=== PATIENT | male | born 1980 | race African-American/Black ===

== ENCOUNTER 2018-09-05 21:12 | Observation (INO) | payer OTHER ==
[2018-09-05] MEDS ORDERED: SODIUM CHLORIDE 0.9% 1,000 ML IV ONE (21:39)
--- NOTE | 2018-09-05 21:41 | ED ---
General Adult HPI - General Chief complaint: Chest Pain Stated complaint: Chest tightness, Dizziness Time Seen by Provider: 09/05/18 21:18 Source: patient, family, RN notes reviewed, old records reviewed Mode of arrival: ambulatory Limitations: no limitations - History of Present Illness Initial comments: 38 -year-old male with no past medical history presents for evaluation of chest tightness and lightheadedness. Patient states that he has been dealing with some upper anterior chest tightness which is intermittent over the past several months. He was seen at an outside hospital and received an EKG. Tonight while exercising he developed some upper chest tightness and became lightheaded. Denies nausea or vomiting. Denies radiating chest pain. Denies any headache or focal numbness or weakness. No significant past medical history. No history diabetes, nonsmoker. - Related Data Home Medications Medication Instructions Recorded Confirmed No Known Home Medications 09/05/18 09/05/18 Allergies Allergy/AdvReac Type Severity Reaction Status Date / Time No Known Allergies Allergy Verified 09/05/18 21:31 Review of Systems ROS Statement: Those systems with pertinent positive or pertinent negative responses have been documented in the HPI. ROS Other: All systems not noted in ROS Statement are negative. Past Medical History Past Medical History: No Reported History History of Any Multi-Drug Resistant Organisms: None Reported Past Surgical History: Unable to Obtain Past Psychological History: No Psychological Hx Reported Smoking Status: Never smoker Past Alcohol Use History: None Reported Past Drug Use History: None Reported General Exam Limitations: no limitations General appearance: alert, in no apparent distress Head exam: Present: atraumatic, normocephalic Eye exam: Present: normal appearance, PERRL, EOMI ENT exam: Present: normal exam Neck exam: Present: normal inspection. Absent: tenderness, meningismus Respiratory exam: Present: normal lung sounds bilaterally. Absent: respiratory distress, wheezes Cardiovascular Exam: Present: regular rate, normal rhythm GI/Abdominal exam: Present: soft. Absent: distended, tenderness, guarding Extremities exam: Present: normal inspection, normal capillary refill. Absent: pedal edema Back exam: Present: normal inspection, full ROM Neurological exam: Present: alert, oriented X3, CN II-XII intact. Absent: motor sensory deficit Psychiatric exam: Present: normal affect, normal mood Skin exam: Present: warm, dry, intact. Absent: cyanosis, diaphoretic Course Vital Signs 09/05/18 09/05/18 09/05/18 21:13 22:00 22:51 Temperature 98.3 F Pulse Rate 83 74 77 Respiratory 20 16 15 Rate Blood Pressure 150/89 140/89 141/87 O2 Sat by Pulse 100 100 100 Oximetry EKG Findings - EKG Comments: EKG Findings:: EKG: Normal sinus rhythm, ventricular rate 71, HI interval 158, QRS duration 88, QTC 408, there is Q-wave and T-wave inversion in lead 3, S- wave in lead 1. No ST segment changes. Medical Decision Making - Medical Decision Making 38 -year-old male presenting with intermittent chest tightness. Patient was sent in by recommendations of his primary care physician. Dr. Auguste is able to evaluate the patient in the emergency department. EKG is normal sinus with Q-wave and T-wave inversion in lead 3, may be normal variant. CBC, CMP are within normal limits, d-dimer is negative, initial troponin negative. Patient will be admitted to Dr. Auguste. Recommends echo and stress echo at this time. Cardiology will be placed on consult. - Lab Data Result diagrams: 09/05/18 21:45 09/05/18 21:45 Lab Results 09/05/18 09/05/18 09/05/18 Range/Units 21:45 21:45 21:45 WBC 8.8 (3.8-10.6) k/uL RBC 4.62 (4.30-5.90) m/uL Hgb 13.6 (13.0-17.5) gm/dL Hct 42.0 (39.0-53.0) % MCV 91.0 (80.0-100.0) fL MCH 29.5 (25.0-35.0) pg MCHC 32.4 (31.0-37.0) g/dL RDW 13.2 (11.5-15.5) % Plt Count 332 (150-450) k/uL Neutrophils % 50 % Lymphocytes % 36 % Monocytes % 6 % Eosinophils % 5 % Basophils % 0 % Neutrophils # 4.4 (1.3-7.7) k/uL Lymphocytes # 3.2 (1.0-4.8) k/uL Monocytes # 0.6 (0-1.0) k/uL Eosinophils # 0.4 (0-0.7) k/uL Basophils # 0.0 (0-0.2) k/uL PT (9.0-12.0) sec INR (<1.2) APTT (22.0-30.0) sec D-Dimer (<0.60) mg/L FEU Sodium 139 (137-145) mmol/L Potassium 3.9 (3.5-5.1) mmol/L Chloride 102 (98-107) mmol/L Carbon Dioxide 27 (22-30) mmol/L Anion Gap 10 mmol/L BUN 18 (9-20) mg/dL Creatinine 1.11 (0.66-1.25) mg/dL Est GFR (CKD-EPI)AfAm >90 (>60 ml/min/1.73 sqM) Est GFR (CKD-EPI)NonAf 85 (>60 ml/min/1.73 sqM) Glucose 103 H (74-99) mg/dL Calcium 9.6 (8.4-10.2) mg/dL Magnesium 2.0 (1.6-2.3) mg/dL Total Bilirubin 0.2 (0.2-1.3) mg/dL AST 33 (17-59) U/L ALT 35 (21-72) U/L Alkaline Phosphatase 42 (38-126) U/L Total Creatine Kinase 813 H (55-170) U/L CK-MB (CK-2) 4.5 H (0.0-2.4) ng/mL CK-MB (CK-2) Rel Index 0.6 Troponin I <0.012 (0.000-0.034) ng/mL NT-Pro-B Natriuret Pep pg/mL Total Protein 7.7 (6.3-8.2) g/dL Albumin 4.5 (3.5-5.0) g/dL 09/05/18 09/05/18 Range/Units 21:45 21:45 WBC (3.8-10.6) k/uL RBC (4.30-5.90) m/uL Hgb (13.0-17.5) gm/dL Hct (39.0-53.0) % MCV (80.0-100.0) fL MCH (25.0-35.0) pg MCHC (31.0-37.0) g/dL RDW (11.5-15.5) % Plt Count (150-450) k/uL Neutrophils % % Lymphocytes % % Monocytes % % Eosinophils % % Basophils % % Neutrophils # (1.3-7.7) k/uL Lymphocytes # (1.0-4.8) k/uL Monocytes # (0-1.0) k/uL Eosinophils # (0-0.7) k/uL Basophils # (0-0.2) k/uL PT 9.7 (9.0-12.0) sec INR 0.9 (<1.2) APTT 28.6 (22.0-30.0) sec D-Dimer 0.27 (<0.60) mg/L FEU Sodium (137-145) mmol/L Potassium (3.5-5.1) mmol/L Chloride (98-107) mmol/L Carbon Dioxide (22-30) mmol/L Anion Gap mmol/L BUN (9-20) mg/dL Creatinine (0.66-1.25) mg/dL Est GFR (CKD-EPI)AfAm (>60 ml/min/1.73 sqM) Est GFR (CKD-EPI)NonAf (>60 ml/min/1.73 sqM) Glucose (74-99) mg/dL Calcium (8.4-10.2) mg/dL Magnesium (1.6-2.3) mg/dL Total Bilirubin (0.2-1.3) mg/dL AST (17-59) U/L ALT (21-72) U/L Alkaline Phosphatase (38-126) U/L Total Creatine Kinase (55-170) U/L CK-MB (CK-2) (0.0-2.4) ng/mL CK-MB (CK-2) Rel Index Troponin I (0.000-0.034) ng/mL NT-Pro-B Natriuret Pep 13 pg/mL Total Protein (6.3-8.2) g/dL Albumin (3.5-5.0) g/dL Disposition Clinical Impression: Chest pain Disposition: ADMITTED IP TO THIS HOSP Condition: Stable Is patient prescribed a controlled substance at d/c from ED?: No Referrals: Jong Auguste MD [Primary Care Provider] - 1-2 days Decision to Admit Reason: Admit from EC Decision Date: 09/05/18 Decision Time: 23:19
[2018-09-05 22:03] LABS: Basophils % (A) 0 %; Eosinophils # (A) 0.4 k/uL (0-0.7); Eosinophils % (A) 5 %; HGB 13.6 gm/dL (13.0-17.5); Lymphocytes # (A) 3.2 k/uL (1.0-4.8); Lymphocytes % (A) 36 %; MCH 29.5 pg (25.0-35.0); MCHC 32.4 g/dL (31.0-37.0); Mean Platelet Volume 6.7; Monocytes # (A) 0.6 k/uL (0-1.0); Monocytes % (A) 6 %; Neutrophils # (A) 4.4 k/uL (1.3-7.7); Neutrophils % (A) 50 %; Platelet Count 332 k/uL (150-450); RBC 4.62 m/uL (4.30-5.90); RDW 13.2 % (11.5-15.5); WBC 8.8 k/uL (3.8-10.6)
[2018-09-05 22:12] LABS: ALT 35 U/L (21-72); AST 33 U/L (17-59); Albumin 4.5 g/dL (3.5-5.0); Alkaline Phosphatase 42 U/L (38-126); Anion Gap 10 mmol/L; Blood Urea Nitrogen 18 mg/dL (9-20); Calcium 9.6 mg/dL (8.4-10.2); Carbon Dioxide 27 mmol/L (22-30); Chloride 102 mmol/L (98-107); Glucose 103 mg/dL (74-99); Potassium 3.9 mmol/L (3.5-5.1); Sodium 139 mmol/L (137-145); Total Bilirubin 0.2 mg/dL (0.2-1.3); Total Protein 7.7 g/dL (6.3-8.2)
[2018-09-05 22:15] LABS: D-Dimer 0.27 mg/L FEU (<0.60); INR 0.9 (<1.2); Partial Thromboplastin Time 28.6 sec (22.0-30.0); Prothrombin Time 9.7 sec (9.0-12.0)
[2018-09-05 22:16] LABS: Creatine Kinase 813 U/L (55-170)
[2018-09-05 22:26] LABS: Creatine Kinase MB 4.5 ng/mL (0.0-2.4)
[2018-09-05 22:30] LABS: Troponin I <0.012 ng/mL (0.000-0.034)
--- NOTE | 2018-09-05 22:32 | XR ---
EXAMINATION TYPE: XR chest 2V DATE OF EXAM: 09/05/2018 COMPARISON: NONE HISTORY: Chest pain TECHNIQUE: Frontal and lateral views of the chest are obtained. FINDINGS: Heart and mediastinum are normal. Lungs are clear. Diaphragm is normal. Bony thorax appear s normal. IMPRESSION: Normal chest.
[2018-09-05] MEDS ORDERED: NITROGLYCERIN SL TABS 0.4 MG TAB SUBLINGUAL STA (23:00)
[2018-09-05] MEDS ORDERED: ACETAMINOPHEN TAB 325 MG TAB PO PRN (23:16)
[2018-09-05] MEDS ORDERED: NALOXONE 0.4 MG/ML 1 ML VIAL IV PRN (23:16)
[2018-09-05] MEDS ORDERED: ASPIRIN 325 MG TAB PO STA (23:17)
[2018-09-06 04:24] LABS: Creatine Kinase 737 U/L (55-170)
[2018-09-06 04:36] LABS: Creatine Kinase MB 3.7 ng/mL (0.0-2.4); Troponin I <0.012 ng/mL (0.000-0.034)
[2018-09-06 07:38] VITALS: RESP 18
--- NOTE | 2018-09-06 10:34 | P.CRDCN ---
History of Present Illness History of present illness: This is a pleasant 38-year-old male with no significant past medical history. He denies history of coronary artery disease, hypertension, dyslipidemia and is a nonsmoker. He denies family history of premature coronary artery disease. He has never seen a medical aides teacher for any reason. We' ve been asked to see him in consultation for symptoms of chest discomfort. He states yesterday while he was exercising at the gym on the treadmill he got off the treadmill and he started feeling a tightness in his chest in the midsternal region. This was associated with a dizzy sensation. He denies radiation of the pain to the arm, back, neck or jaw. He denies shortness of breath, diaphoresis, nausea, vomiting or palpitations. The symptoms persisted for approximately 10-15 minutes and ultimately subsided on their own. He states he has felt symptoms like this intermittently in the past and has been diagnosed with costochondritis. He has never undergone any sort of stress testing in the past. At the time of my exam he is seen resting comfortably in bed in no acute distress. He denies any further symptoms of chest discomfort. EKG reveals sinus mechanism with no acute ST or T wave abnormalities noted. Chest x-ray is negative for an acute cardiopulmonary process. Laboratory data reviewed, WBC 8.8, hemoglobin 13.6, platelets 332, d-dimer 0.27 , sodium 139, potassium 3.9, creatinine 1.11, magnesium 2.0, cardiac enzymes negative 2, CK 813 and 737, NT proBNP 13. He takes no daily cardiac medications. At the time of my exam: CONSTITUTIONAL: Denies fever. Denies chills. EYES: Denies blurred vision. Denies vision changes. Denies eye pain. EARS, NOSE, MOUTH & THROAT: Denies headache. Denies sore throat. Denies ear pain. CARDIOVASCULAR: Denies chest pain. Denies shortness of breath. Denies orthopnea. Denies PND. Denies palpitations. RESPIRATORY: Denies cough. GASTROINTESTINAL: Denies abdominal pain. Denies diarrhea. Denies constipation. Denies nausea. Denies vomiting. MUSCULOSKELETAL: Denies myalgias. INTEGUMENTARY: Denies pruitis. Denies rash. NEUROLOGIC: Denies numbness. Denies tingling. Denies weakness. PSYCHIATRIC: Denies anxiety. Denies depression. ENDOCRINE: Denies fatigue. Denies weight change. Denies polydipsia. Denies polyurina. GENITOURINARY: Denies burning, hematuria or urgency with micturation. HEMATOLOGIC: Denies history of anemia. Denies bleeding. Blood pressure 149/80 heart rate 62 afebrile maintaining oxygen saturation on room air GENERAL: This is a 38-year-old -[place] male in no apparent distress at the time of my examination. HEENT: Head is atraumatic, normocephalic. Pupils are equal, round. Sclerae anicteric. Conjunctivae are clear. Mucous membranes of the mouth are moist. Neck is supple. There is no jugular venous distention. No carotid bruit is heard. LUNGS: Clear to auscultation no wheezes, rales or rhonchi. No chest wall tenderness is noted on palpation or with deep breathing. HEART: Regular rate and rhythm without murmurs, rubs or gallops. S1 and S2 heard. ABDOMEN: Soft, nontender. Bowel sounds are heard. No organomegaly noted. EXTREMITIES: No evidence of peripheral edema and no calf tenderness noted. VASCULAR: Radial and dorsalis pedis pulses palpated, no evidence of clubbing. NEUROLOGIC: Patient is awake, alert and oriented x3. ASSESSMENT Chest pain, atypical. An acute coronary event has been ruled out with no EKG evidence of ischemia and negative cardiac enzymes. PLAN An acute coronary event has been ruled out with no EKG evidence of ischemia and negative cardiac enzymes. Stress test and echocardiogram have been ordered by the emergency department and we agree with proceeding. If stress test is negative he is stable from a cardiac perspective. Thank you kindly for this consultation. Nurse Practitioner note has been reviewed, I agree with a documented findings and plan of care. Patient was seen and examined. Past Medical History Past Medical History: No Reported History History of Any Multi-Drug Resistant Organisms: None Reported Past Surgical History: No Surgical Hx Reported Additional Past Anesthesia/Blood Transfusion Reaction / Comment(s): Pt has never had anesthesia Smoking Status: Never smoker - Past Family History Father Family Medical History: No Reported History Additional Family Medical History / Comment(s): Healthy Mother Family Medical History: No Reported History Additional Family Medical History / Comment(s): Healthy Medications and Allergies Home Medications Medication Instructions Recorded Confirmed Type No Known Home Medications 09/05/18 09/05/18 History Allergies Allergy/AdvReac Type Severity Reaction Status Date / Time No Known Allergies Allergy Verified 09/05/18 21:31 Physical Exam Vitals: Vital Signs Temp Pulse Pulse Resp BP BP Pulse Ox 09/06/18 07:30 97.5 F L 62 18 149/80 100 09/06/18 05:00 60 17 120/79 97 09/06/18 04:00 49 L 13 116/71 98 09/06/18 03:00 53 L 13 120/63 97 09/06/18 02:00 66 18 119/68 96 09/06/18 01:00 66 16 125/65 97 09/06/18 00:00 75 12 124/72 97 09/05/18 23:56 74 18 124/72 97 09/05/18 22:51 77 15 141/87 100 09/05/18 22:00 74 16 140/89 100 09/05/18 21:13 98.3 F 83 20 150/89 100 Intake and Output 09/05/18 09/06/18 09/06/18 22:59 06:59 14:59 Other: Voiding Method Toilet Weight 108.862 kg 110.7 kg Results 09/05/18 21:45 09/05/18 21:45 Cardiac Enzymes 09/05/18 09/05/18 09/06/18 Range/Units 21:45 21:45 03:21 AST 33 (17-59) U/L CK-MB (CK-2) 4.5 H 3.7 H (0.0-2.4) ng/mL Troponin I <0.012 <0.012 (0.000-0.034) ng/mL Coagulation 09/05/18 Range/Units 21:45 PT 9.7 (9.0-12.0) sec APTT 28.6 (22.0-30.0) sec CBC 09/05/18 Range/Units 21:45 WBC 8.8 (3.8-10.6) k/uL RBC 4.62 (4.30-5.90) m/uL Hgb 13.6 (13.0-17.5) gm/dL Hct 42.0 (39.0-53.0) % Plt Count 332 (150-450) k/uL Comprehensive Metabolic Panel 09/05/18 Range/Units 21:45 Sodium 139 (137-145) mmol/L Potassium 3.9 (3.5-5.1) mmol/L Chloride 102 (98-107) mmol/L Carbon Dioxide 27 (22-30) mmol/L BUN 18 (9-20) mg/dL Creatinine 1.11 (0.66-1.25) mg/dL Glucose 103 H (74-99) mg/dL Calcium 9.6 (8.4-10.2) mg/dL AST 33 (17-59) U/L ALT 35 (21-72) U/L Alkaline Phosphatase 42 (38-126) U/L Total Protein 7.7 (6.3-8.2) g/dL Albumin 4.5 (3.5-5.0) g/dL Current Medications Generic Name Dose Route Start Last Admin Trade Name Freq PRN Reason Stop Dose Admin Acetaminophen 650 mg 09/05/18 23:16 Tylenol Tab PO Q6HR PRN Mild Pain or Fever > 100.5 Naloxone HCl 0.2 mg 09/05/18 23:16 Narcan IV Q2M PRN Opioid Reversal Intake and Output 09/05/18 09/06/18 09/06/18 22:59 06:59 14:59 Other: Voiding Method Toilet Weight 108.862 kg 110.7 kg Patient Weight 09/07/18 06:59 Weight 110.7 kg 09/05/18 21:45 09/05/18 21:45
[2018-09-06 11:25] VITALS: BP 113/71; PULSE 69; TEMP 98.5
--- NOTE | 2018-09-06 12:03 | ECHOF ---
Referral Reason:cp MEASUREMENTS -------- HEIGHT: 182.9 cm WEIGHT: 108.9 kg BP: 120/79 RVIDd: 3.2 cm (< 3.3) IVSd: 1.2 cm (0.6 - 1.1) LVIDd: 4.5 cm (3.9 - 5.3) LVPWd: 1.2 cm (0.6 - 1.1) IVSs: 1.7 cm LVIDs: 3.1 cm LVPWs: 1.8 cm LA Diam: 3.4 cm (2.7 - 3.8) LAESV Index (A-L): 24.31 ml/m Ao Diam: 2.9 cm (2.0 - 3.7) AV Cusp: 2.0 cm (1.5 - 2.6) MV EXCURSION: 21.150 mm (> 18.000) MV EF SLOPE: 135 mm/s (70 - 150) EPSS: 0.3 cm MV E Hima: 1.08 m/s MV DecT: 217 ms MV A Hima: 0.83 m/s MV E/A Ratio: 1.31 RAP: 5.00 mmHg RVSP: 22.27 mmHg FINDINGS -------- Sinus rhythm. This was a technically good study. The left ventricular size is normal. There is borderline concentric left ventricular hypertrophy. Overall left ventricular systolic function is normal with, an EF between 55 - 60 %. The right ventricle is normal in size. Normal LA size by volume 22+/-6 ml/m2. The right atrium is normal in size. The aortic valve is trileaflet, and appears structurally normal. No aortic stenosis or regurgitation. The mitral valve is normal. Mild tricuspid regurgitation present. Right ventricular systolic pressure is normal at < 35 mmHg. The right ventricular systolic pressure, as measured by Doppler, is 22.27mmHg. Trace/mild (physiologic) pulmonic regurgitation. The aortic root size is normal. Normal inferior vena cava with normal inspiratory collapse consistent with estimated right atrial pre ssure of 5 mmHg. There is no pericardial effusion. CONCLUSIONS -------- 1. Sinus rhythm. 2. This was a technically good study. 3. The left ventricular size is normal. 4. There is borderline concentric left ventricular hypertrophy. 5. Overall left ventricular systolic function is normal with, an EF between 55 - 60 %. 6. Normal LA size by volume 22+/-6 ml/m2. 7. The aortic valve is trileaflet, and appears structurally normal. No aortic stenosis or regurgitati on. 8. The mitral valve is normal. 9. Mild tricuspid regurgitation present. 10. Right ventricular systolic pressure is normal at < 35 mmHg. 11. Trace/mild (physiologic) pulmonic regurgitation. 12. The aortic root size is normal. 13. Normal inferior vena cava with normal inspiratory collapse consistent with estimated right atrial pressure of 5 mmHg. 14. There is no pericardial effusion. INTEGRITY MANAGER: Mar Cancino RDCS
--- NOTE | 2018-09-06 13:37 | ECHOS ---
STRESS ECHOCARDIOGRAM DATE OF SERVICE: 09/06/2018 INDICATIONS: Chest pain. MEDICATIONS: BASELINE HEART RATE: 68 BASELINE BLOOD PRESSURE: 131/70 MAXIMUM HEART RATE: 164 MAXIMUM BLOOD PRESSURE: 182/100 85% MPHR: 156 100% MPHR: 184 METS: 12.1 MAXIMUM STAGE REACHED: IV TOTAL EXERCISE TIME: 11 minutes CLINICAL INFORMATION: Baseline rhythm is sinus mechanism, rate 68, normal axis and intervals, RSR prime. Baseline blood pressure 131/70 mmHg. Patient exercised on Kal protocol for 11 minutes, reaching peak rate 164 beats per minute, which is equal to 89% maximum predicted heart rate. Peak blood pressure 182/100 mmHg. Test was terminated secondary to fatigue. There was no chest pain. Electrocardiograph monitoring revealed no evidence of diagnostic ischemic ST deviation. Baseline echocardiogram revealed normal wall thickening and motion. At peak exercise, there was normal wall motion augmentation with no hypokinesis or dyskinesis. CONCLUSION: 1. Good exercise tolerance with normal electrocardiograph response to exercise. 2. Normal stress echocardiogram with no evidence of stress induced ischemia. MMODL / IJN: [id number] /
--- NOTE | 2018-09-06 16:12 | P.HPIM ---
History of Present Illness 38-year-old male developed chest pain after working out in the gym. 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 Patient to have a cardiology evaluation Review of Systems Cardiovascular: Reports chest pain Past Medical History Past Medical History: No Reported History History of Any Multi-Drug Resistant Organisms: None Reported Past Surgical History: No Surgical Hx Reported Additional Past Anesthesia/Blood Transfusion Reaction / Comment(s): Pt has never had anesthesia Smoking Status: Never smoker - Past Family History Father Family Medical History: No Reported History Additional Family Medical History / Comment(s): Healthy Mother Family Medical History: No Reported History Additional Family Medical History / Comment(s): Healthy Medications and Allergies Home Medications Medication Instructions Recorded Confirmed Type No Known Home Medications 09/05/18 09/05/18 History Allergies Allergy/AdvReac Type Severity Reaction Status Date / Time No Known Allergies Allergy Verified 09/05/18 21:31 Physical Exam Vitals: Vital Signs Temp Pulse Pulse Resp BP BP Pulse Ox 09/06/18 11:24 98.5 F 69 18 113/71 99 09/06/18 07:30 97.5 F L 62 18 149/80 100 09/06/18 05:00 60 17 120/79 97 09/06/18 04:00 49 L 13 116/71 98 09/06/18 03:00 53 L 13 120/63 97 09/06/18 02:00 66 18 119/68 96 09/06/18 01:00 66 16 125/65 97 09/06/18 00:00 75 12 124/72 97 09/05/18 23:56 74 18 124/72 97 09/05/18 22:51 77 15 141/87 100 09/05/18 22:00 74 16 140/89 100 09/05/18 21:13 98.3 F 83 20 150/89 100 Intake and Output 09/06/18 09/06/18 09/06/18 06:59 14:59 22:59 Intake Total 600 Balance 600 Intake: Oral 600 Other: Voiding Method Toilet # Voids 1 Weight 110.7 kg - Constitutional General appearance: average body habitus - EENT Eyes: PERRLA Ears: bilateral: normal - Neck Neck: normal ROM - Respiratory Respiratory: negative: CTA - Cardiovascular Rhythm: regular - Gastrointestinal General gastrointestinal: soft - Neurologic Neurologic: CNII-XII intact - Musculoskeletal Musculoskeletal: gait normal - Psychiatric Psychiatric: A&O x's 3, appropriate affect, intact judgment & insight Results CBC & Chem 7: 09/05/18 21:45 09/05/18 21:45 Labs: Abnormal Lab Results - Last 24 Hours (Table) 09/05/18 09/05/18 09/06/18 Range/Units 21:45 21:45 03:21 Glucose 103 H (74-99) mg/dL Total Creatine Kinase 813 H 737 H (55-170) U/L CK-MB (CK-2) 4.5 H 3.7 H (0.0-2.4) ng/mL Chest x-ray: report reviewed Thrombosis Risk Factor Assmnt - Choose All That Apply Any of the Below Risk Factors Present?: Yes Each Factor Represents 1 point: Obesity (BMI >25) Other Risk Factors: No Other congenital or acquired thrombophilia - If yes, enter type in comment: No Thrombosis Risk Factor Assessment Total Risk Factor Score: 1 Thrombosis Risk Factor Assessment Level: Low Risk Assessment and Plan Plan: Assessment Atypical chest pain troponins negative EKG normal sinus rhythm Negative stress test discharge per cardiology Negative health history Plan Cardiology consultation Discharge home follow-up with family physician Dr.Aaron Auguste
--- NOTE | 2018-09-06 16:14 | P.DS ---
Providers Date of admission: 09/05/18 23:41 Expected date of discharge: 09/06/18 Attending physician: Jong Auguste Consults: 09/05/18 23:17 Consult Physician Routine Consulting Provider: Art Galindo Consult Reason/Comments: CP Do you want consulting provider notified?: Yes Primary care physician: Jong Auguste Hospital Course: 38-year-old well-developed male was admitted to the emergency room for evaluation of chest pain. Patient had a consultation with cardiology cardiology cleared for discharge with the negative stress test Assessment Chest pain atypical troponins negative stress test negative Negative health history Plan Follow-up with family physician Dr. Jong Auguste Patient Condition at Discharge: Stable Plan - Discharge Summary Discharge Rx Participant: No New Discharge Prescriptions: No Action No Known Home Medications Discharge Medication List No Known Home Medications 09/05/18 [History] Follow up Appointment(s)/Referral(s): Jong Auguste MD [Primary Care Provider] - 1-2 days Discharge Disposition: HOME SELF-CARE
== END 2018-09-06 17:06 | disposition home or self-care (01) ==
LOC: EC 21:12 → 1SOBS 23:41
PROVIDERS: ADMIT Family Medicine; ATTEND Family Medicine
DX: R07.89 Other chest pain (principal); R42 Dizziness and giddiness; E66.9 Obesity, unspecified; Z68.33 Body mass index [BMI] 33.0-33.9, adult
CPT/HCPCS: 96360; 99285; 36415; 93005; 93306; 93351; 85379; 83880; 80053; 82550 ×2; 82553 ×2; 83735; 84484 ×2; 85025; 85610; 85730; 71046; G0378 ×2

== ENCOUNTER 2021-04-20 20:06 | Emergency (ER) | payer OTHER ==
[2021-04-20] MEDS ORDERED: MAG HYDROX/AL HYDROX/SIMETH 30 ML, HYOSCYAMINE ELIXIR 10 ML, LIDOCAINE VISCOUS 2% 10 ML PO STA ×6 (20:35)
--- NOTE | 2021-04-20 20:39 | ED ---
General Adult HPI - General Chief complaint: Chest Pain Stated complaint: Chest Pain Time Seen by Provider: 04/20/21 20:22 Source: patient Mode of arrival: ambulatory Limitations: no limitations - History of Present Illness Initial comments: Dictation was produced using [employer] dictation software. please excuse any grammatical, word or spelling errors. Chief Complaint: 40-year-old male presents with chest pain History of Present Illness: She is 40-year-old male who presents today with chest pain. His pain is exacerbated whenever he tries to swallow solids or liquids. He does not feel like he is having issues with dysphagia but he does feel symptoms when he swallows. He states that it's sharp in his mid chest. His symptoms not exacerbated by exertion. No associated diaphoresis. Does not radiate to shoulders or jaw. Patient has no history of coronary artery disease. Does not smoke. No medical problems. No family history of cardiac disease. The ROS documented in this emergency department record has been reviewed and confirmed by me. Those systems with pertinent positive or negative responses have been documented in the HPI. All other systems are other negative and/or noncontributory. PHYSICAL EXAM: General Impression: Alert and oriented x3, not in acute distress, not drooling HEENT: Normocephalic atraumatic, extra-ocular movements intact, pupils equal and reactive to light bilaterally, mucous membranes moist. Cardiovascular: Heart regular rate and rhythm Chest: Able to complete full sentences, no retractions, no tachypnea Abdomen: abdomen soft, non-tender, non-distended, no organomegaly Musculoskeletal: Pulses present and equal in all extremities, no peripheral edema Motor: no focal deficits noted Neurological: CN II-XII grossly intact, no focal motor or sensory deficits noted Skin: Intact with no visualized rashes Psych: Normal affect and mood ED course: 40-year-old male presents with odynophagia. Symptoms are very atypical. Since for ACS. Signs upon arrival are within acceptable limits. EKG interpretation: Ventricular rate 72, normal sinus rhythm, MA interval 152, QRS 82, QTC 424. No MA prolongation, no QTC prolongation, no ST or T-wave changes noted. Overall, this EKG is unremarkable Two-view chest x-ray is unremarkable. Patient reports relief after GI cocktail administration. He does report some relief. Patient advised to follow-up with primary care doctor for outpatient management of odynophagia. - Related Data Previous Rx's Medication Instructions Recorded Acetaminophen Tab [Tylenol] 650 mg PO Q6HR PRN tab 09/06/18 Allergies Allergy/AdvReac Type Severity Reaction Status Date / Time No Known Allergies Allergy Verified 04/20/21 20:14 Review of Systems ROS Statement: Those systems with pertinent positive or pertinent negative responses have been documented in the HPI. ROS Other: All systems not noted in ROS Statement are negative. Past Medical History Past Medical History: No Reported History History of Any Multi-Drug Resistant Organisms: None Reported Past Surgical History: No Surgical Hx Reported Additional Past Anesthesia/Blood Transfusion Reaction / Comment(s): Pt has never had anesthesia Past Psychological History: No Psychological Hx Reported Past Alcohol Use History: None Reported Past Drug Use History: None Reported - Past Family History Father Family Medical History: No Reported History Additional Family Medical History / Comment(s): Healthy Mother Family Medical History: No Reported History Additional Family Medical History / Comment(s): Healthy General Exam Limitations: no limitations Course Vital Signs 04/20/21 20:14 Temperature 97.9 F Pulse Rate 71 Respiratory 16 Rate Blood Pressure 129/84 O2 Sat by Pulse 97 Oximetry Disposition Clinical Impression: Chest pain Disposition: HOME SELF-CARE Condition: Good Instructions (If sedation given, give patient instructions): Chest Pain (ED) Is patient prescribed a controlled substance at d/c from ED?: No Referrals: Jong Auguste MD [Primary Care Provider] - 1-2 days
--- NOTE | 2021-04-20 20:57 | XR ---
EXAMINATION TYPE: XR chest 2V DATE OF EXAM: 04/20/2021 COMPARISON: 09/05/2018 HISTORY: Chest pain TECHNIQUE: FINDINGS: Heart and mediastinum are normal. Lungs are clear. Diaphragm is normal. Bony thorax appears normal. IMPRESSION: Normal chest. No change.
[2021-04-20 22:01] VITALS: BP 118/74; PULSE 18; RESP 64; TEMP 98.2
== END 2021-04-20 21:50 | disposition home or self-care (01) ==
LOC: EC 20:06
DX: R07.9 Chest pain, unspecified (principal)
CPT/HCPCS: 71046; 93005; 99285

== ENCOUNTER 2022-04-02 17:52 | Emergency (ER) | payer BC ==
[2022-04-02 18:17] VITALS: BP 110/70; PULSE 100; RESP 20; TEMP 98
[2022-04-02] MEDS ORDERED: SODIUM CHLORIDE 0.9% 500 ML 500 ML IV STA (18:34)
--- NOTE | 2022-04-02 18:58 | XR ---
EXAMINATION TYPE: XR chest 2V DATE OF EXAM: 04/02/2022 COMPARISON: 04/20/2021 HISTORY: Dysrhythmia TECHNIQUE: Frontal and lateral views of the chest are obtained. FINDINGS: There is no focal air space opacity, pleural effusion, or pneumothorax seen. The cardiac silhouette size is within normal limits. The osseous structures are intact. IMPRESSION: No acute cardiopulmonary process.
[2022-04-02 19:02] LABS: Basophils % (A) 0 %; Eosinophils # (A) 0.1 k/uL (0-0.7); Eosinophils % (A) 1 %; HCT 44.4 % (39.0-53.0); HGB 14.5 gm/dL (13.0-17.5); Lymphocytes # (A) 0.9 k/uL (1.0-4.8); Lymphocytes % (A) 9 %; MCH 30.8 pg (25.0-35.0); MCHC 32.6 g/dL (31.0-37.0); MCV 94.5 fL (80.0-100.0); Mean Platelet Volume 7.6; Monocytes # (A) 0.2 k/uL (0-1.0); Monocytes % (A) 2 %; Neutrophils # (A) 8.5 k/uL (1.3-7.7); Neutrophils % (A) 87 %; Platelet Count 358 k/uL (150-450); RBC 4.69 m/uL (4.30-5.90); RDW 13.1 % (11.5-15.5); WBC 9.7 k/uL (3.8-10.6)
[2022-04-02 19:05] LABS: INR 0.9 (<1.2); Partial Thromboplastin Time 27.6 sec (22.0-30.0); Prothrombin Time 10.1 sec (9.0-12.0)
--- NOTE | 2022-04-02 19:05 | ED ---
General Adult HPI - General Chief complaint: Arrhythmia/Palpitations Stated complaint: High HR Time Seen by Provider: 04/02/22 18:15 Source: patient, RN notes reviewed, old records reviewed Mode of arrival: ambulatory Limitations: no limitations - History of Present Illness Initial comments: This is a 41-year-old male who presents emergency Department complaining of heart palpitations. 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 Patient came in was 107 beats a minute on his watch. Patient denies any chest pain patient denies shortness of breath any diaphoretic episodes or nausea. Patient denies any headache patient denies numbness weakness. Patient denies any recent illness. Patient denies any recent fever chills or cough per patient denies abdominal pain patient denies vomiting or diarrhea. Patient states aside from feeling his heart racing and being a little anxious because of all the things that you he feels at his baseline. - Related Data Home Medications Medication Instructions Recorded Confirmed No Known Home Medications 04/02/22 04/02/22 Allergies Allergy/AdvReac Type Severity Reaction Status Date / Time No Known Allergies Allergy Verified 04/02/22 19:24 Review of Systems ROS Statement: Those systems with pertinent positive or pertinent negative responses have been documented in the HPI. ROS Other: All systems not noted in ROS Statement are negative. Past Medical History Past Medical History: No Reported History History of Any Multi-Drug Resistant Organisms: None Reported Past Surgical History: No Surgical Hx Reported Additional Past Anesthesia/Blood Transfusion Reaction / Comment(s): Pt has never had anesthesia Past Psychological History: No Psychological Hx Reported Smoking Status: Never smoker Past Alcohol Use History: None Reported Past Drug Use History: None Reported - Past Family History Father Family Medical History: No Reported History Additional Family Medical History / Comment(s): Healthy Mother Family Medical History: No Reported History Additional Family Medical History / Comment(s): Healthy General Exam - General Exam Comments Initial Comments: GENERAL: Patient is well-developed and well-nourished. Patient is nontoxic and well- hydrated and is in no acute distress. ENT: Neck is soft and supple. No significant lymphadenopathy is noted. Oropharynx is clear. Moist mucous membranes. Neck has full range of motion without eliciting any pain. There is no thyroid enlargement and no masses were felt. EYES: The sclera were anicteric and conjunctiva were pink and moist. Extraocular movements were intact and pupils were equal round and reactive to light. Eyelids were unremarkable. PULMONARY: Unlabored respirations. Good breath sounds bilaterally. No audible rales rhonchi or wheezing was noted. CARDIOVASCULAR: There is a regular rate and rhythm without any murmurs gallops or rubs. ABDOMEN: Soft and nontender with normal bowel sounds. SKIN: Skin is clear with no lesions or rashes and otherwise unremarkable. NEUROLOGIC: Patient is alert and oriented x3. Cranial nerves II through XII are grossly intact. Motor and sensory are also intact. Normal speech, volume and content. Symmetrical smile. MUSCULOSKELETAL: Normal extremities with adequate strength and full range of motion. No lower e xtremity swelling or edema. No calf tenderness. LYMPHATICS: No significant lymphadenopathy is noted PSYCHIATRIC: Patient seems mildly anxious Limitations: no limitations Course Vital Signs 04/02/22 18:12 Temperature 98.0 F Pulse Rate 100 Respiratory 20 Rate Blood Pressure 110/70 O2 Sat by Pulse 97 Oximetry Medical Decision Making - Medical Decision Making EKG shows sinus rhythm at 90 bpm [place] interval 260 QRS is a 70 QT interval 3:30 QTC is 377. Patient's EKG shows no ST segment elevation or depression. Patient has some inverted T waves in 3 and aVF. Patient remained asymptomatic throughout the ED stay. - Lab Data Result diagrams: 04/02/22 18:38 04/02/22 18:38 Lab Results 04/02/22 04/02/22 04/02/22 Range/Units 18:38 18:38 18:38 WBC 9.7 (3.8-10.6) k/uL RBC 4.69 (4.30-5.90) m/uL Hgb 14.5 (13.0-17.5) gm/dL Hct 44.4 (39.0-53.0) % MCV 94.5 (80.0-100.0) fL MCH 30.8 (25.0-35.0) pg MCHC 32.6 (31.0-37.0) g/dL RDW 13.1 (11.5-15.5) % Plt Count 358 (150-450) k/uL MPV 7.6 Neutrophils % 87 % Lymphocytes % 9 % Monocytes % 2 % Eosinophils % 1 % Basophils % 0 % Neutrophils # 8.5 H (1.3-7.7) k/uL Lymphocytes # 0.9 L (1.0-4.8) k/uL Monocytes # 0.2 (0-1.0) k/uL Eosinophils # 0.1 (0-0.7) k/uL Basophils # 0.0 (0-0.2) k/uL PT 10.1 (9.0-12.0) sec INR 0.9 (<1.2) APTT 27.6 (22.0-30.0) sec Sodium (137-145) mmol/L Potassium (3.5-5.1) mmol/L Chloride (98-107) mmol/L Carbon Dioxide (22-30) mmol/L Anion Gap mmol/L BUN (9-20) mg/dL Creatinine (0.66-1.25) mg/dL Est GFR (CKD-EPI)AfAm (>60 ml/min/1.73 sqM) Est GFR (CKD-EPI)NonAf (>60 ml/min/1.73 sqM) Glucose (74-99) mg/dL Calcium (8.4-10.2) mg/dL Magnesium (1.6-2.3) mg/dL Total Bilirubin (0.2-1.3) mg/dL AST (17-59) U/L ALT (4-49) U/L Alkaline Phosphatase (38-126) U/L Troponin I (0.000-0.034) ng/mL Total Protein (6.3-8.2) g/dL Albumin (3.5-5.0) g/dL Urine Opiates Screen Not Detected (NotDetected) Ur Oxycodone Screen Not Detected (NotDetected) Urine Methadone Screen Not Detected (NotDetected) Ur Propoxyphene Screen Not Detected (NotDetected) Ur Barbiturates Screen Not Detected (NotDetected) U Tricyclic Antidepress Not Detected (NotDetected) Ur Phencyclidine Scrn Not Detected (NotDetected) Ur Amphetamines Screen Not Detected (NotDetected) U Methamphetamines Scrn Not Detected (NotDetected) U Benzodiazepines Scrn Not Detected (NotDetected) Urine Cocaine Screen Not Detected (NotDetected) U Marijuana (THC) Screen Not Detected (NotDetected) 04/02/22 04/02/22 Range/Units 18:38 18:38 WBC (3.8-10.6) k/uL RBC (4.30-5.90) m/uL Hgb (13.0-17.5) gm/dL Hct (39.0-53.0) % MCV (80.0-100.0) fL MCH (25.0-35.0) pg MCHC (31.0-37.0) g/dL RDW (11.5-15.5) % Plt Count (150-450) k/uL MPV Neutrophils % % Lymphocytes % % Monocytes % % Eosinophils % % Basophils % % Neutrophils # (1.3-7.7) k/uL Lymphocytes # (1.0-4.8) k/uL Monocytes # (0-1.0) k/uL Eosinophils # (0-0.7) k/uL Basophils # (0-0.2) k/uL PT (9.0-12.0) sec INR (<1.2) APTT (22.0-30.0) sec Sodium 138 (137-145) mmol/L Potassium 4.2 (3.5-5.1) mmol/L Chloride 102 (98-107) mmol/L Carbon Dioxide 28 (22-30) mmol/L Anion Gap 8 mmol/L BUN 16 (9-20) mg/dL Creatinine 0.91 (0.66-1.25) mg/dL Est GFR (CKD-EPI)AfAm >90 (>60 ml/min/1.73 sqM) Est GFR (CKD-EPI)NonAf >90 (>60 ml/min/1.73 sqM) Glucose 95 (74-99) mg/dL Calcium 9.3 (8.4-10.2) mg/dL Magnesium 1.9 (1.6-2.3) mg/dL Total Bilirubin 0.6 (0.2-1.3) mg/dL AST 56 (17-59) U/L ALT 51 H (4-49) U/L Alkaline Phosphatase 49 (38-126) U/L Troponin I <0.012 (0.000-0.034) ng/mL Total Protein 7.7 (6.3-8.2) g/dL Albumin 4.6 (3.5-5.0) g/dL Urine Opiates Screen (NotDetected) Ur Oxycodone Screen (NotDetected) Urine Methadone Screen (NotDetected) Ur Propoxyphene Screen (NotDetected) Ur Barbiturates Screen (NotDetected) U Tricyclic Antidepress (NotDetected) Ur Phencyclidine Scrn (NotDetected) Ur Amphetamines Screen (NotDetected) U Methamphetamines Scrn (NotDetected) U Benzodiazepines Scrn (NotDetected) Urine Cocaine Screen (NotDetected) U Marijuana (THC) Screen (NotDetected) Disposition Clinical Impression: Palpitations Disposition: HOME SELF-CARE Condition: Good Instructions (If sedation given, give patient instructions): Heart Palpitations (ED) Additional Instructions: Patient should return to emergency department as any chest pain or worsening symptoms or shortness of breath. Is patient prescribed a controlled substance at d/c from ED?: No Referrals: Jong Auguste MD [Primary Care Provider] - 1-2 days Time of Disposition: 19:34
[2022-04-02 19:09] LABS: Amphetamine Screen,Urine Not Detected (NotDetected); Barbiturate Screen,Urine Not Detected (NotDetected); Benzodiazepines Screen,Urine Not Detected (NotDetected); Cocaine Screen,Urine Not Detected (NotDetected); Methadone Screen, Urine Not Detected (NotDetected); Opiate Screen,Urine Not Detected (NotDetected); Oxycodone Screen, Urine Not Detected (NotDetected); Phencyclidine Screen,Urine Not Detected (NotDetected); Tricyclic Antidepressant,Urine Not Detected (NotDetected); Urn Cannabinoid Scrn Not Detected (NotDetected)
[2022-04-02 19:10] LABS: ALT 51 U/L (4-49); AST 56 U/L (17-59); African American GFR (CKD) >90 (>60 ml/min/1.73 sqM); Albumin 4.6 g/dL (3.5-5.0); Alkaline Phosphatase 49 U/L (38-126); Anion Gap 8 mmol/L; Blood Urea Nitrogen 16 mg/dL (9-20); Calcium 9.3 mg/dL (8.4-10.2); Carbon Dioxide 28 mmol/L (22-30); Chloride 102 mmol/L (98-107); Glucose 95 mg/dL (74-99); Magnesium 1.9 mg/dL (1.6-2.3); Non-African American GFR(CKD) >90 (>60 ml/min/1.73 sqM); Potassium 4.2 mmol/L (3.5-5.1); Sodium 138 mmol/L (137-145); Total Bilirubin 0.6 mg/dL (0.2-1.3); Total Protein 7.7 g/dL (6.3-8.2)
== END 2022-04-02 19:48 | disposition home or self-care (01) ==
LOC: EC 17:52
DX: R00.2 Palpitations (principal)
CPT/HCPCS: 36415; 71046; 80053; 80306; 83735; 84443; 84484; 85025; 85610; 85730; 93005

== ENCOUNTER 2024-08-15 10:48 | Day surgery (SDC) | payer BC ==
[~2024-08-15 10:48] MED LIST: HYDROmorphone 0.5 MG/0.5 ML SYRINGE IVP PRN; Pre Op ABX Message 1 EACH MISC MISCELLANE ONE
[2024-08-15 11:54] VITALS: TEMP 97.3
[2024-08-15] MEDS: IV FLUID CONTINUATION 1,000 ML IV ONE (11:56)
[2024-08-15] MEDS: ONDANSETRON 4 MG/2 ML VIAL IVP ONE (12:05)
[2024-08-15] MEDS: DEXAMETHASONE SOD PHOSPHATE 4 MG/ML 1 ML VIAL IV ONE (12:06)
[2024-08-15] MEDS: LACTATED RINGERS 1,000 ML IV SCH (12:13)
[2024-08-15 12:19] LABS: Glucose,Whole Blood 87 mg/dL (70-110)
[2024-08-15] MEDS: HEPARIN SODIUM,PORCINE 5,000 UNIT/ML 1 ML VIAL SQ STA (12:24)
[2024-08-15] MEDS ORDERED: fentaNYL (PF) 50 MCG/ML 2 ML AMP ONE (12:33)
[2024-08-15] MEDS ORDERED: MIDAZOLAM 2 MG/2 ML VIAL ONE (12:33)
[2024-08-15] MEDS ORDERED: KETAMINE HCL IN 0.9 % NACL 50 MG/5 ML SYRINGE ONE (12:33)
[2024-08-15] MEDS ORDERED: PROPOFOL 10 MG/ML 20 ML VIAL IV ONE (12:33)
[2024-08-15] MEDS ORDERED: LIDOCAINE 1% INJ 10MG/ML (20 ML MDV) ONE (12:33)
[2024-08-15] MEDS: LIDOCAINE 1%-EPI 1:100,000 20 ML VIAL SQ ONE ×2 (12:49)
[2024-08-15 13:33] VITALS: RESP 18
[2024-08-15 14:09] VITALS: BP 120/77; PULSE 57
--- NOTE | 2024-08-29 23:12 | P.OP ---
Date of Procedure: 08/15/24 Preoperative Diagnosis: neck mass Postoperative Diagnosis: neck lipoma Procedure(s) Performed: sharp excision of neck lipoma Anesthesia: XAVIER Surgeon: Francois Berman Pathology: other (neck mass) Condition: stable Disposition: PACU Indications for Procedure: neck mass Operative Findings: neck lipoma Description of Procedure: Patient was brought to the operative sutie where he was cleaned and draped in sterile fashion and a timout was performed. A number 15 blade was then used to make an transverse incision. Electrocautery was then used to dissect down to the subcutaneous tissue. A large mass was observed and this was dissect free circumferntially. The final measurement was 5 x 5 x 5cm dissecting down to subq tissue. A hemostatic timeout was performed and no significant bleeding was observed. The deep dermis was brought together using 3-0 vicryl suture. The skin was closed using 4-0 vicryl suture. The patient tolerated the procedure and was transported to pacu in stable condition.
== END 2024-08-15 14:45 | disposition home or self-care (01) ==
LOC: OR 10:48
PROVIDERS: ATTEND Surgery
DX: D17.0 Benign lipomatous neoplasm of skin and subcutaneous tissue of head, face and neck (principal); E11.9 Type 2 diabetes mellitus without complications
CPT/HCPCS: 88304; 21552; J2250; J1644; J1100; J0690; J2405; J2003; J3010; J2704; 88307